=== PATIENT | female | born 1995 | race Caucasian/White ===

== ENCOUNTER 2017-09-20 01:07 | Emergency (ER) | payer OTHER ==
[2017-09-20] MEDS ORDERED: hydrOXYzine HCL TAB* 50 MG PO ONE (03:01)
[2017-09-20 04:20] VITALS: BP 125/88
--- NOTE | 2017-09-20 05:54 | ED ---
Brenda Vasquez Julia, scribed for Osito Trejo MD on 09/20/17 at 0304 . Psychiatric Complaint - HPI Summary HPI Summary: This patient is a 21 year old F presenting to [facility] with a chief complaint of SOB since 23:00 with worsening in the past hour but is currently resolved. Patient reports chest tightness, elevated HR, and nervousness. Patient denies cough, fever, or similar previous symptoms. Patient reports stress in life causing anxiety. She was recently prescribed Cylexa about 2 weeks ago, because of increase stress of school work. Patient denies hx of panic attacks. She states she had difficulty sleeping. She states she is safe. She has attempted to make appointments with [facility] services, but cant make appointment for2 months. - History Of Current Complaint Chief Complaint: EDShortnessOfBreath Time Seen by Provider: 09/20/17 02:42 Hx Obtained From: Patient - Allergies/Home Medications Allergies/Adverse Reactions: Allergies Allergy/AdvReac Type Severity Reaction Status Date / Time No Known Allergies Allergy Verified 09/20/17 01:15 PMH/Surg Hx/FS Hx/Imm Hx Psychiatric History: Reports: Hx Anxiety, Hx Depression Infectious Disease History: No Infectious Disease History: Denies: Traveled Outside the [place] in Last 30 Days - Family History Known Family History: Negative: Diabetes - Social History Occupation: Student Lives: Dormitory/Roommates Hx Substance Use: No Substance Use Type: Reports: None Hx Tobacco Use: No Review of Systems Positive: Other - tingling in hands, around mouth. Negative: Fever, Chills, Fatigue Negative: Sore Throat Negative: Palpitations, Chest Pain Positive: Shortness Of Breath. Negative: Cough Negative: Myalgia Negative: Headache Positive: Anxious, Depressed All Other Systems Reviewed And Are Negative: Yes Physical Exam - Summary Physical Exam Summary: Appearance: Well appearing, tearful, emotional distress Skin: warm, dry, reflects adequate perfusion, eczema Head/face: normal Eyes: EOMI, AMARIS ENT: normal Neck: supple, non-tender Respiratory: CTA, breath sounds present Cardiovascular: RRR, pulses symmetrical Abdomen: non-tender, soft Bowel: present Musculoskeletal: normal, strength/ROM intact Neuro: normal, sensory motor intact, A&Ox3 Triage Information Reviewed: Yes Vital Signs On Initial Exam: Initial Vitals Temp Pulse Resp BP Pulse Ox 99.1 F 82 16 137/84 100 09/20/17 01:10 09/20/17 01:10 09/20/17 01:10 09/20/17 01:10 09/20/17 01:10 Vital Signs Reviewed: Yes Diagnostics - Vital Signs Vital Signs Temp Pulse Resp BP Pulse Ox 09/20/17 01:10 99.1 F 82 16 137/84 100 - Laboratory Lab Statement: Any lab studies that have been ordered have been reviewed, and results considered in the medical decision making process. Course/Dx - Course Course Of Treatment: Pt presents with SOB since 23:00 with worsening in the past hour but is currently resolved. Patient reports chest tightness, elevated HR, and nervousness. Patient said she has a previous life event that causes her stress that has been worsened by academic work. She does not discuss what the event is as she "is not yet ready". She states she isn't ready to talk to someone. I discussed online outreach options and importance of mental health/ self care. Has counselor in [place], was Rx celexa recently. Denies SI/HI. Tx with prn vistaril for panic type sx. - Differential Dx/Clinical Impression Differential Diagnosis/HQI/PQRI: Positive: Anxiety, Other - anxiety rxn/ hyperventilation. Negative: Alcohol Intoxication, Suicidal Ideation Provider Diagnosis: Panic attack, Adjustment disorder Discharge - Discharge Plan Condition: Good Disposition: HOME Prescriptions: hydrOXYzine HCL TAB* [Atarax 25 MG TAB*] 25 mg PO TID PRN #20 tab PRN Reason: Anxiety Patient Education Materials: Panic Attack (ED) Referrals: [facility] - Arben SMITH [Primary Care Provider] - Additional Instructions: Find counseling assistance. Return immediately to ER or call 911 if you feel you are in crisis. Return if worse, new symptoms or other concerns as discussed. The documentation as recorded by the Brenda cummings Julia accurately reflects the service I personally performed and the decisions made by me, Osito Trejo MD.
== END 2017-09-20 04:21 | disposition home or self-care (01) ==
LOC: ED 01:07
DX: F41.0 Panic disorder [episodic paroxysmal anxiety] (principal); F43.20 Adjustment disorder, unspecified; R06.02 Shortness of breath; F41.9 Anxiety disorder, unspecified; F32.9 Major depressive disorder, single episode, unspecified
CPT/HCPCS: 99282; A9270-GY

== ENCOUNTER 2019-09-11 10:57 | Emergency (ER) | payer OTHER ==
[2019-09-11 11:11] VITALS: BP 132/83
[2019-09-11 11:40] LABS: ABS Eosinophils 0.1 10^3/ul (0-0.6); ABS Lymphocytes 1.5 10^3/ul (1.0-4.8); ABS Monocytes 0.5 10^3/ul (0-0.8); ABS Neutrophils 3.7 10^3/ul (1.5-7.7); Eosinophil % 1.2 %; Hematocrit 33 % (35-47); Hemoglobin 10.9 g/dL (12.0-16.0); Lymphocyte % 26.3 %; Mean Corpuscular HGB Conc 33 g/dL (31-36); Mean Corpuscular Hemoglobin 25 pg (27-31); Mean Corpuscular Volume 76 fL (80-97); Mean Platelet Volume 8.1 fL (7.4-10.4); Nucleated Red Blood Cells % 0.1; Platelet Count 286 10^3/uL (150-450); Red Blood Count 4.38 10^6 /uL (3.70-4.87); Red Cell Distribution Width 18 % (10-15); White Blood Count 5.9 10^3/uL (3.5-10.8)
[2019-09-11 11:46] LABS: INR 1.02 (0.82-1.09)
[2019-09-11 11:58] LABS: ALT 25 U/L (7-52); AST 17 U/L (13-39); Albumin 4.4 g/dL (3.2-5.2); Albumin/Globulin Ratio 1.7 (1-3); Alkaline Phosphatase 70 U/L (34-104); Anion Gap 8 mmol/L (2-11); Blood Urea Nitrogen 11 mg/dL (6-24); CO2 Carbon Dioxide 25 mmol/L (22-32); Calcium 8.8 mg/dL (8.6-10.3); Chloride 104 mmol/L (101-111); EGFR African American 149.8 (>60); EGFR Non-African American 123.8 (>60); Globulin 2.6 g/dL (2-4); Glucose 74 mg/dL (70-100); Potassium 4.1 mmol/L (3.5-5.0); Sodium 137 mmol/L (135-145)
[2019-09-11 12:23] LABS: HCG Pregnancy < 0.60 mIU/mL
--- NOTE | 2019-09-11 14:12 | ED ---
HPI Chest Pain - HPI Summary HPI Summary: This patient is a 23-year-old female who presents to the ED with upper right chest pain which is nonradiating. Symptoms began around 10 AM this morning. Symptoms have since dissipated and is now a dull ache rating a 1/10. This morning she rated the pain at an 8/10. Denies any crushing pain. Denies any cardiac history. Patient takes no medications and is otherwise healthy. She denies any fevers, sweats, chills, shortness of breath, cough, congestion, headache, visual changes. No recent travel. She states she first noticed the chest pain when she rolled over onto her side. - History of Current Complaint Chief Complaint: EDChestPainROMI Time Seen by Provider: 09/11/19 12:02 Hx Obtained From: Patient Onset/Duration: Started Hours Ago Timing: Constant Initial Severity: Mild Current Severity: None Pain Intensity: 5 Pain Scale Used: 0-10 Numeric Chest Pain Location: Discrete at: - right upper chest wall Chest Pain Radiates: No Character: Dull/Aching Aggravating Factor(s): Nothing Alleviating Factor(s): Nothing Associated Signs and Symptoms: Positive: Negative - Risk Factors Pulmonary Embolism Risk Factors: Negative TAD Risk Factors: Negative - Allergy/Home Medications Allergies/Adverse Reactions: Allergies Allergy/AdvReac Type Severity Reaction Status Date / Time No Known Allergies Allergy Verified 09/11/19 11:11 Home Medications: Home Medications Brexpiprazole (Nf) [Rexulti] 1 mg PO DAILY 09/11/19 [History Confirmed 09/11/19] Clomipramine HCl 100 mg PO BID 09/11/19 [History Confirmed 09/11/19] PMH/Surg Hx/FS Hx/Imm Hx Previously Healthy: Yes Psychiatric History: Reports: Hx Anxiety, Hx Depression - Immunization History Hx Pertussis Vaccination: No Immunizations Up to Date: Yes Infectious Disease History: No Infectious Disease History: Denies: Traveled Outside the [place] in Last 30 Days - Family History Known Family History: Negative: Diabetes - Social History Occupation: Unemployed Lives: With Family Alcohol Use: Occasionally Hx Substance Use: No Substance Use Type: Reports: None Hx Tobacco Use: No Smoking Status (MU): Never Smoked Tobacco Review of Systems Negative: Fever, Chills, Fatigue, Skin Diaphoresis Positive: Chest Pain. Negative: Palpitations Negative: Shortness Of Breath, Cough Genitourinary: Negative Positive: no symptoms reported, see HPI Negative: Arthralgia - pain to palpation of the upper R chest wall, Myalgia Skin: Negative Neurological: Negative All Other Systems Reviewed And Are Negative: Yes Physical Exam Triage Information Reviewed: Yes Vital Signs On Initial Exam: Initial Vitals Temp Pulse Resp BP Pulse Ox 98.4 F 100 18 132/83 99 09/11/19 11:06 09/11/19 11:06 09/11/19 11:06 09/11/19 11:06 09/11/19 11:06 Vital Signs Reviewed: Yes Appearance: Positive: Well-Appearing, Well-Nourished Skin: Positive: Skin Color Reflects Adequate Perfusion Head/Face: Positive: Normal Head/Face Inspection Eyes: Positive: EOMI, AMARIS, Conjunctiva Clear Neck: Positive: Supple, Nontender, No Lymphadenopathy Respiratory/Lung Sounds: Positive: Clear to Auscultation, Breath Sounds Present Cardiovascular: Positive: RRR, Pulses are Symmetrical in both Upper and Lower Extremities. Negative: Tachycardia, Leg Edema Left, Leg Edema Right Musculoskeletal: Positive: Normal, Strength/ROM Intact Neurological: Positive: Speech Normal Psychiatric: Positive: Affect/Mood Appropriate AVPU Assessment: Alert Procedures - Sedation Patient Received Moderate/Deep Sedation with Procedure: No Diagnostics - Vital Signs Vital Signs Temp Pulse Resp BP Pulse Ox 09/11/19 11:06 98.4 F 100 18 132/83 99 - Laboratory Lab Results: Lab Results 09/11/19 09/11/19 09/11/19 Range/Units 11:25 11:25 11:25 WBC 5.9 (3.5-10.8) 10^3/uL RBC 4.38 (3.70-4.87) 10^6 /uL Hgb 10.9 L (12.0-16.0) g/dL Hct 33 L (35-47) % MCV 76 L (80-97) fL MCH 25 L (27-31) pg MCHC 33 (31-36) g/dL RDW 18 H (10-15) % Plt Count 286 (150-450) 10^3/uL MPV 8.1 (7.4-10.4) fL Neut % (Auto) 63.8 % Lymph % (Auto) 26.3 % Moffat % (Auto) 8.2 % Eos % (Auto) 1.2 % Baso % (Auto) 0.5 % Absolute Neuts (auto) 3.7 (1.5-7.7) 10^3/ul Absolute Lymphs (auto) 1.5 (1.0-4.8) 10^3/ul Absolute Monos (auto) 0.5 (0-0.8) 10^3/ul Absolute Eos (auto) 0.1 (0-0.6) 10^3/ul Absolute Basos (auto) 0.0 (0-0.2) 10^3/ul Absolute Nucleated RBC 0.0 10^3/ul Nucleated RBC % 0.1 INR (Anticoag Therapy) 1.02 (0.82-1.09) Sodium 137 (135-145) mmol/L Potassium 4.1 (3.5-5.0) mmol/L Chloride 104 (101-111) mmol/L Carbon Dioxide 25 (22-32) mmol/L Anion Gap 8 (2-11) mmol/L BUN 11 (6-24) mg/dL Creatinine 0.61 (0.51-0.95) mg/dL Est GFR ( Amer) 149.8 (>60) Est GFR (Non-Af Amer) 123.8 (>60) BUN/Creatinine Ratio 18.0 (8-20) Glucose 74 (70-100) mg/dL Calcium 8.8 (8.6-10.3) mg/dL Total Bilirubin 0.60 (0.2-1.0) mg/dL AST 17 (13-39) U/L ALT 25 (7-52) U/L Alkaline Phosphatase 70 (34-104) U/L Troponin I 0.00 (<0.03) ng/mL Total Protein 7.0 (6.4-8.9) g/dL Albumin 4.4 (3.2-5.2) g/dL Globulin 2.6 (2-4) g/dL Albumin/Globulin Ratio 1.7 (1-3) Beta HCG, Quant < 0.60 mIU/mL Result Diagrams: 09/11/19 11:25 09/11/19 11:25 Lab Statement: Any lab studies that have been ordered have been reviewed, and results considered in the medical decision making process. Chest Pain Course/Dx - Course Course Of Treatment: During his course of treatment, the patient is evaluated for right-sided upper chest pain. No pain to the sternal region or into the epigastrium. No pain to the back. No evidence of shortness of breath. EKG obtained which shows a normal sinus rhythm with a regular rate. Labs obtained including a troponin which was 0.00. On physical examination, patient appears well. Endorses the pain at a 1/10. Lungs CTA. RRR. Patient is nondiaphoretic. Vital signs are stable. Likely this is muscular injury as she has some pain on palpation to the area. No bruising or signs of trauma noted. Heart score = 0. Pt okay for discharge at this time. She voices no concerns. - Chest Pain Differential Diagnosis/HQI/PQRI: Angina, Chest Wall, Other: - strain, costochondritis - Diagnoses Provider Diagnoses: Muscle strain Discharge ED - Sign-Out/Discharge Documenting (check all that apply): Patient Departure - Discharge Plan Condition: Stable Disposition: HOME Patient Education Materials: Musculoskeletal Pain (ED) Referrals: [facility] - Arben SMITH [Primary Care Provider] - Additional Instructions: Ibuprofen 600mg three times daily only as needed for any continuing chest ache This is likely a muscle strai, but could be some inflammation Return to the ED if you develop worsening symptoms - Billing Disposition and Condition Condition: STABLE Disposition: Home
== END 2019-09-11 13:33 | disposition home or self-care (01) ==
LOC: ED 10:57
DX: S29.011A Strain of muscle and tendon of front wall of thorax, initial encounter (principal); R07.9 Chest pain, unspecified; Z79.899 Other long term (current) drug therapy; X58.XXXA Exposure to other specified factors, initial encounter; Y92.9 Unspecified place or not applicable; F41.9 Anxiety disorder, unspecified
CPT/HCPCS: 36415; 80053; 84484; 84702; 85025; 85610; 93005; 99282